=== PATIENT | female | born 1965 | race Caucasian/White ===

== ENCOUNTER 2023-02-05 10:07 | Emergency (ER) | payer MEDICARE, MEDICAID, SELFPAY ==
--- NOTE | ~2023-02-05 | CT_ITS ---
EXAMINATION: CT ABDOMEN AND PELVIS WITH CONTRAST CLINICAL INFORMATION: Pain. Weight loss. Dysuria. COMPARISON: None available. TECHNIQUE: Multidetector volumetric images were obtained from the superior aspect of the liver through the pubic symphysis following administration 85 mL of Omnipaque 350 intravenous contrast. Sagittal and coronal reformatted images were obtained on the technologist's workstation. Oral contrast: No This CT examination was performed using dose optimization techniques as appropriate, variously including the following: *Automated exposure control *Adjustment of mA and/or kV according to patient size (this includes techniques or standardized protocols for targeted exams where dose is matched to indication/reason for exam; i.e. extremities or head) *Use of iterative reconstruction technique DLP: 1152 mGy-cm FINDINGS: LUNG BASES: The visualized lung bases are unremarkable. LIVER, GALLBLADDER, AND BILIARY TREE: The liver is normal in size, shape, and attenuation. No focal hepatic lesion or biliary ductal dilatation is present. The gallbladder is unremarkable with no evidence of radiopaque gallstones, gallbladder wall thickening, or obvious pericholecystic inflammatory changes. PANCREAS: Unremarkable. SPLEEN: Unremarkable. ADRENAL GLANDS: Unremarkable. KIDNEYS AND URETERS: The kidneys are normal in size, shape, and attenuation. No hydronephrosis, hydroureter, or calculi seen. No perinephric stranding. Left-sided parapelvic cysts are noted. BLADDER: Unremarkable. GASTROINTESTINAL TRACT: There are scattered diverticula of the transverse, descending and sigmoid colon without diverticulitis. The appendix is visualized and is within normal limits. ABDOMINAL WALL: There is a small umbilical hernia containing fat. LYMPH NODES: Normal. VASCULAR: The endometrium is prominent measuring close to 2 cm. PELVIC VISCERA: Unremarkable. OSSEOUS STRUCTURES: There is diffuse thoracolumbar disc degenerative change most pronounced at L4-L5 with posterior osteophytes and disc bulging with multilevel spinal canal narrowing. CT/CT abdomen pelvis w IV con IMPRESSION: Diverticula of the transverse, descending and sigmoid colon without diverticulitis. Umbilical hernia containing fat. The endometrial appears to be thickened/prominent measuring close to 2 cm. Consider nonemergent pelvic ultrasound as hyperplasia considered. Fleischner guidelines were followed.
[2023-02-05 10:34] VITALS: BP 129/84; PULSE 78; RESP 16; TEMP 36.3; O2SAT 97; BMI 35.9
--- NOTE | 2023-02-05 12:32 | ED.ABDPAIN ---
HPI - Abdominal Pain General Chief Complaint: Abdominal Pain Stated Complaint: back pain/ abd pain/ blood in urine Time Seen by Provider: 02/05/23 12:24 Source: patient Mode of arrival: ambulatory Limitations: no limitations History of Present Illness HPI narrative: 57 yo female with PMH of HTN, normal colonoscopy about 1 year ago, life stress who notes since November she has lost 20+ lbs and has ignored lower back/abdominal pain and new hematuria. She was putting it off due to taking care of her mother. Has never had this before MD elicited complaint: abdominal pain Pertinent past history: none Onset (ago): month(s) (few) Pain Consistency: intermittent Location: suprapubic Severity: moderate Quality: cramping Radiation: back Migration to: no migration Exacerbating factors: nothing Relieving factors: nothing Associated symptoms: nausea, hematuria and other (unintentional weight loss) Related Data Allergies Allergy/AdvReac Type Severity Reaction Status Date / Time nitroglycerin [NITROGLYCERIN] Allergy Unknown SEIZURE Verified 02/05/23 10:33 LIKE SYMPTOMS, fainting/ seizure, seizures Review of Systems Review of Systems Constitutional : pos Weight loss, No Fever, No Chills ENT/Mouth : No sore throat, No Rhinorrhea Eyes: No Swelling, No Redness Cardiovascular : No Chest Pain, No SOB, NoEdema Respiratory : No Cough, No Sputum, No Wheezing Gastrointestinal : Positive Nausea, no Vomiting, no Diarrhea, positive abdominal Pain, No Hematochezia, No Melena Genitourinary : No Dysuria, No Urinary Frequency, pos Hematuria, No Urgency Musculoskeletal : No joint pain, No Myalgias, No Joint Swelling Skin : No Skin Lesions, No rash Neuro : No Weakness, No Numbness, No Dizziness, No Headache Psych : No Anxiety/Panic, No Depression Heme/Lymph: No Bruising, No Lymphadenopathy Endocrine : No Polyuria, No Polydipsia All other systems reviewed and are negative. [facility] Past Medical History Medical History HTN (hypertension) Social History (Updated 02/05/23 @ 12:45 by Sidra Temple DO) Patient Tobacco Use Status: Never used Tobacco Smoked in Last 30 Days: No Advance Directives: No Advance Directives Information Provided: Yes Physical Exam ED Vital Signs: Vital Signs - 24 hr 02/05/23 10:34 02/05/23 12:51 02/05/23 15:10 Temperature 97.4 F 97.4 F Pulse Rate 78 74 69 Respiratory Rate 16 18 18 Blood Pressure 129/84 149/79 H 143/63 H Pulse Oximetry 97 97 Oxygen Delivery Method Room Air Room Air BMI result Body Mass Index 35.9 Appearance: Alert. Oriented X3. No acute distress. Eyes: Pupils equal, round and reactive to light. ENT: Pharynx normal. Neck: Normal inspection. Neck supple. CVS: Normal heart rate and rhythm. Pulses normal. Respiratory: No respiratory distress. Breath sounds normal. Abdomen: Soft and mild lower abdominal ttp no rebound or guarding, seems distended Skin: Skin warm and dry. Normal skin color. Normal skin turgor. Extremities: No lower extremity edema. No calf ttp Neuro: Oriented X 3. No motor deficit. No sensory deficit. Medical Decision Making Medical Decision Making [facility] Narrative: 57 yo female with PMH of HTN and has lots of life stress here with unintentional weight loss since november abdominal pain radiating to back now with hematuria. She has not seen her doctor for this but due to worsening symptoms is now in the ED and scared. At this time will need labs, UA and CT scan for mass vs stone. Differential Diagnosis Differential Diagnoses: The differential diagnosis associated with the presentation includes mass, cancer, stone Admission/Observation Consideration of admission/observation: Escalation of care including admission/observation considered can be managed as outpatinet will refer to OBGYN Lab Data [facility] Lab Attestation statement: I reviewed the patient's lab results. 02/05/23 12:52 02/05/23 12:52 Labs: Lab Results 02/05/23 02/05/23 Range/Units 12:52 13:45 WBC 8.1 (4.8-10.8) X10*3/uL RBC 4.52 (4.20-5.50) X10*6/uL Hgb 13.3 (12.0-16.0) g/dl Hct 40.4 (37.0-47.0) % MCV 89.4 (80.0-98.0) fL MCH 29.4 (27.0-33.0) pg MCHC 32.9 (31.0-35.0) g/dl RDW 13.2 (11.0-16.0) % Plt Count 319 (160-400) X10*3/uL MPV 10.2 (9.4-12.3) fL Immature Gran % (Auto) 0.2 (0.0-0.4) % Neut % (Auto) 70.4 (45-73) % Lymph % (Auto) 21.7 (20-40) % [place] % (Auto) 6.8 (2-11) % Eos % (Auto) 0.4 (0-4) % Baso % (Auto) 0.5 (0-2) % Lymph # (Auto) 1.8 (1.2-4.9) X10*3/uL [place] # (Auto) 0.6 (0.1-1.2) X10*3/uL Eos # (Auto) 0.0 (0.0-0.4) X10*3/uL Baso # (Auto) 0.0 (0.0-0.2) X10*3/uL Abs Immat Gran (auto) 0.02 (0.00-0.03) X10*3/uL Absolute Neuts (auto) 5.7 (2.0-8.3) x10*3/uL Absolute Nucleated RBC 0.000 (0.0-0.012) X10*3/uL Nucleated RBC % (auto) 0.0 (0.0-0.2) /100WBC Sodium 142 (135-145) mmol/L Potassium 3.7 (3.3-5.1) mmol/L Chloride 112 H (96-108) mmol/L Carbon Dioxide 26 (22-29) mmol/L Anion Gap 8 L (12-20) BUN 13 (9-16) mg/dL Creatinine 0.90 (0.5-1.4) mg/dL Estim Creat Clear Calc 83.4 Estimated GFR > 60 Random Glucose 106 (60-115) mg/dL Calcium 8.8 (8.4-10.2) mg/dL Magnesium 2.3 (1.6-2.6) mg/dL Total Bilirubin 0.5 (0.0-1.0) mg/dL Direct Bilirubin 0.2 (0.0-0.5) mg/dL AST 14 (5-31) U/L ALT 14 (0-31) U/L Alkaline Phosphatase 76 (39-117) U/L Total Protein 7.0 (6.5-8.0) g/dL Albumin 4.0 (3.5-5.0) g/dL Lipase 12 (8-78) U/L Urine Color Yellow Urine Appearance Cloudy Urine pH 5.5 (5.0-9.0) Ur Specific [place] 1.010 (1.005-1.025) Urine Protein 30 (1+) H (Neg-Trace) mg/dL Urine Glucose (UA) Negative (Negative) mg/dL Urine Ketones Negative (Negative) mg/dL Urine Blood Large (3+) H (Negative) Urine Nitrite Negative (Negative) Ur Leukocyte Esterase Small (1+) H (Negative) Urine RBC >20 H (0-2) /HPF Urine WBC 11-20 H (0-5) /HPF Ur Squamous Epith Cells 0-2 (0-2) /HPF Urine Bacteria 4+ (None Seen) Hyaline Casts 0-2 (0-2) /LPF Independent Interpretation I performed an independent interpretation of an: CT Scan (no sig findings needs OB follow up for uterus) Radiology Impression Discussion of test interpretation with radiology: I have reviewed the radiologist's reading. Prescription Management I considered prescription management with: Antibiotic Medications Administered Discontinued Medications Generic Name Dose Route Start Last Admin Trade Name Freq PRN Reason Stop Dose Admin Iohexol 85 ml 02/05/23 14:15 02/05/23 14:16 Iohexol 350 Mg/Ml 100 Ml Infus..Btl IV 02/05/23 14:16 85 ml ONCE ONE Administration Discharge Plan Discharge Clinical Impression: Abdominal pain Qualifiers: Abdominal location: lower abdomen, unspecified Qualified Code(s): R10.30 - Lower abdominal pain, unspecified Hematuria Qualifiers: Hematuria type: gross Qualified Code(s): R31.0 - Gross hematuria Patient Disposition: Home, Self-Care Instructions: Abdominal Pain (ED), Hematuria (ED) Additional Instructions: take a probiotic while on antibiotic. you did have a thickened endometrium (lining of uterus) you will need to see your doctor and OBGYN for ultrasound and endometrial biopsy. do not wait on this. return for fevers, vomiting, worsening pain or bleeding IMPRESSION: Diverticula of the transverse, descending and sigmoid colon without diverticulitis. Umbilical hernia containing fat. The endometrial appears to be thickened/prominent measuring close to 2 cm. Consider nonemergent pelvic ultrasound as hyperplasia considered. Referrals: William Forde MD [Physician] - (call next week to schedule appointment)
[2023-02-05 12:51] VITALS: BP 149/79; PULSE 74; RESP 18
[2023-02-05 12:55] LABS: MANUAL DIFF FLAG NO
[2023-02-05 13:14] LABS: Basophils Percent Auto 0.5 % (0-2); Eosinophils Percent Auto 0.4 % (0-4); Hematocrit 40.4 % (37.0-47.0); Hemoglobin 13.3 g/dl (12.0-16.0); Imm Gran Abs Auto 0.02 X10*3/uL (0.00-0.03); Imm Gran Pct Auto 0.2 % (0.0-0.4); Lymphocytes Absolute Auto 1.8 X10*3/uL (1.2-4.9); Lymphocytes Percent Auto 21.7 % (20-40); Mean Corpuscular HGB Conc 32.9 g/dl (31.0-35.0); Mean Corpuscular Hemoglobin 29.4 pg (27.0-33.0); Mean Corpuscular Volume 89.4 fL (80.0-98.0); Mean Platelet Volume 10.2 fL (9.4-12.3); Monocytes Absolute Auto 0.6 X10*3/uL (0.1-1.2); Monocytes Percent Auto 6.8 % (2-11); Neutrophils Absolute Auto 5.7 x10*3/uL (2.0-8.3); Neutrophils Percent Auto 70.4 % (45-73); Platelet Count 319 X10*3/uL (160-400); Red Blood Count 4.52 X10*6/uL (4.20-5.50); Red Cell Distribution Width 13.2 % (11.0-16.0); White Blood Count 8.1 X10*3/uL (4.8-10.8)
[2023-02-05 13:36] LABS: Alanine Aminotransferase 14 U/L (0-31); Alkaline Phosphatase 76 U/L (39-117); Anion Gap 8 (12-20); Aspartate Amino Transferase 14 U/L (5-31); Bilirubin Direct 0.2 mg/dL (0.0-0.5); Bilirubin Total 0.5 mg/dL (0.0-1.0); Blood Urea Nitrogen 13 mg/dL (9-16); Calcium 8.8 mg/dL (8.4-10.2); Carbon Dioxide 26 mmol/L (22-29); Chloride 112 mmol/L (96-108); Creatinine Clr Calc Pharmacy 83.4; Estimated Glomerular Filt Rate > 60; Glucose Random 106 mg/dL (60-115); Lipase 12 U/L (8-78); Magnesium 2.3 mg/dL (1.6-2.6); Potassium 3.7 mmol/L (3.3-5.1); Sodium 142 mmol/L (135-145)
[2023-02-05 13:55] LABS: Glucose Urine UA Negative (Negative); Leukocyte Esterase Urine Small (1+) (Negative); Nitrite Urine Negative (Negative); PH 5.5 (5.0-9.0); UMIC TRIGGER UACC YES; Urine Blood Large (3+) (Negative); Urine Ketones Negative (Negative); Urine Protein 30 (1+) mg/dL (Neg-Trace)
[2023-02-05 13:56] LABS: Color Urine Yellow
[2023-02-05 13:57] LABS: Appearance Urine Cloudy
[2023-02-05 13:58] LABS: Bacteria Urine 4+ (None Seen); Hyaline Casts Urine 0-2 /LPF (0-2); RBC Urine >20 /HPF (0-2); Squamous Epithelial Cell Urine 0-2 /HPF (0-2); UACC Culture Trigger YES
[2023-02-05] MEDS: iohexoL 350 MG/ML 100 ML INFUS..BTL 85 ML IV (14:16)
[2023-02-05 15:10] VITALS: BP 143/63; PULSE 69; RESP 18; TEMP 36.3; O2SAT 97
[2023-02-05] MEDS: cefuroxime axetiL 250 MG TABLET PO (16:05)
[2023-02-05 16:07] VITALS: BP 140/77; PULSE 70; RESP 16; O2SAT 97
== END 2023-02-05 16:18 | disposition home or self-care (01) ==
PROVIDERS: Emergency Provider Emergency Medicine
DX: R31.0 Gross hematuria (principal); R10.30 Lower abdominal pain, unspecified; Z79.899 Other long term (current) drug therapy
CPT/HCPCS: 36415; 74177; 80048; 80076; 81001; 83690; 83735; 85025; 87086; 87088; 87186; 99284; Q9967

== ENCOUNTER 2023-02-10 13:02 | Outpatient (AMB) | payer MEDICARE, MEDICAID, SELFPAY ==
--- NOTE | 2023-02-10 13:41 | MHC.OFFVIS ---
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 for 7 days, the patient's symptoms have improved markedly since then. On CT scan , showed a thickened endometrium and a fat containing umbilical hernia . Last co testing ? Last mammogram was many years ago [facility] Medical History (Updated 02/10/23 @ 14:27 by William Forde MD) HTN (hypertension) Surgical History (Updated 02/10/23 @ 13:50 by JOHNNY Strickland) Hx of breast lump removal Hx of knee surgery Social History (Updated 02/10/23 @ 13:50 by JOHNNY Strickland) Patient Tobacco Use Status: Never used Tobacco e-Cigarette/Vaping Use: Currently Using Female Reproductive History Menstrual Age of Menarche: 11 control method: none Total pregnancies: 0 Review of Systems Const All systems reviewed & are unremarkable except as noted in HPI and below Physical Exam Vital Signs: Last Vital Signs BP 132/80 02/10/23 13:47 BMI result Body Mass Index 35.4 General: Yes no CVA tenderness External Female Exam: normal external appearance and normal appearance of the urethra Speculum Exam - Vagina: normal appearance of the vagina, normal palpation, no lesions, no masses and other (Blood per vagina) Speculum Exam - Cervix: normal appearance of the cervix, normal palpation, no lesions, no masses and nontender Bimanual exam- vagina & uterus: normal bimanual exam, normal palpation, uterine size normal, normal palpation, uterine shape normal, No Cervical tenderness present and non-tender Bimanual Exam- Adnexa, other: normal adnexae Back/Spine/Pelvis Back: no CVA tenderness Office Procedures Endometrial Biopsy Details: The patient was counseled regarding the indication and benefits of endometrial sampling to rule out endometrial pathology including not limited to endometrial hyperplasia or endometrial cancer and others; The alternatives (Either do nothing vs. hysteroscopy D&C) & the risks were discussed with the patient including but not limited: pain, uterine perforation, bleeding, infection, possible injury to bladder, bowel, ureter, possible need for blood transfusion with all its possible risks. The patient verbalized understanding all questions answered and signed consent. The patient was placed into the dorsal lithotomy position; a speculum was inserted in the vagina. Using aseptic technique for the procedure, the cervix was cleansed with Betadine. The anterior lip of the cervix was grasped with a single tooth tenaculum. The uterus was sounded to 7 cm with a 4 mm Pipelle was used. Tissues samples were obtained and placed in formalin, in a patient labeled container and sent to the pathology department. At the end of the procedure, there was minimal bleeding noted The patient tolerated the procedure well and was discharged in good condition with the following instructions: Nothing in the vagina until the bleeding stops. No sex until the bleeding stops, to call if any of the following occurs: fever (>100.4), flu-like symptoms, abdominal pain, heavy bleeding, four smelling vaginal discharge. The patient was instructed to schedule a Follow up appointment in 2 weeks to discuss pathology results of the biopsy and treatment options. This note was generated with a voice recognition program. Some errors may have been overlooked during the review of this note. Sometimes these errors may affect the content or meaning of a given sentence. [id number] Biopsy Assessment & Plan Assessment & Plan (1) Postmenopausal bleeding: Comment: Thick endometrium by CT Code(s): N95.0 - Postmenopausal bleeding Plan: Co testing done. Mammogram ordered. Discussed with the patient the pelvic ultrasound findings, the endometrial stripe thickenss by CT was more than 4mm. The negative predictive value, positive predictive value, Sensitivity, specificity of using ultrasound measurement of endometrial stripe to detecting endometrial pathology including hyperplasia , polyp or cancer were discussed with the patient. Recommended to the patient that the next step is an endometrial sampling via hysteroscopy D&C possible polypectomy versus endometrial biopsy to r/o endometrial pathology including hyperplasia or cancer. All the pros and cons risks and benefits of each approach were discussed with the patient, endometrial biopsy being less invasive, office procedure with less sensitivity and inability diagnose a polyp and removal versus hysteroscopy done under anesthesia more invasive more sensitive to endometrial cancer and possibility of diagnosing and endometrial polyp with the possibility of polypectomy. All questions were answered pt verbalized understanding and decided to proceed with endometrial biopsy. EMB done, see procedure note. Instructions given the patient to schedule a 2 week EMB follow-up appointment. (2) Umbilical hernia: Code(s): K42.9 - Umbilical hernia without obstruction or gangrene Plan: Discussed with the patient the finding on CT scan showing fat containing umbilical hernia , will refer to marketing regional consultant surgery Orders: Orders Pap Smear Today N95.0 - Postmenopausal bleeding MM screening mammo BI Today Z12.31 - Encounter for screening mammogram for malignant neoplasm of breast Surgical Today N95.0 - Postmenopausal bleeding AMB Endometrial Biopsy Today N95.0 - Postmenopausal bleeding Referrals General Surgery Referral K42.9 - Umbilical hernia without obstruction or gangrene Coding Level of Care Code New Pt Level 3 (00843) Procedure Only Diagnoses Postmenopausal bleeding N95.0 Umbilical hernia K42.9 CPT Codes Endometrial Biopsy - CPT: 09199-Bzilacymphg Biopsy ([id number])
[2023-02-10 13:47] VITALS: BP 132/80; BMI 35.4
== END 2023-02-10 14:28 | disposition home or self-care (01) ==
PROVIDERS: Visit Provider Obstetrics & Gynecology
DX: N95.0 Postmenopausal bleeding (principal); K42.9 Umbilical hernia without obstruction or gangrene
CPT/HCPCS: 58100

== ENCOUNTER 2023-02-10 13:02 | Outpatient (REF) | payer MEDICARE, MEDICAID, SELFPAY ==
[2023-02-15 22:58] LABS: HPV mRNA E6/E7 rflx Not Detected (Not Detected)
== END 2023-02-10 13:03 | disposition home or self-care (01) ==
LOC: HO.LNP 13:02
PROVIDERS: Visit Provider Obstetrics & Gynecology
DX: Z12.4 Encounter for screening for malignant neoplasm of cervix (principal); Z11.51 Encounter for screening for human papillomavirus (HPV); N95.0 Postmenopausal bleeding; K42.9 Umbilical hernia without obstruction or gangrene
CPT/HCPCS: 58100; 87624; 88142; 88305

== ENCOUNTER 2023-02-22 08:28 | Outpatient (AMB) | payer MEDICARE, MEDICAID, SELFPAY ==
--- NOTE | 2023-02-22 08:47 | A.OFFVIS_ITS ---
Intake Vital Signs 02/22/23 08:54 Height 5 ft 7 in Weight 254 lb BMI 39.8 BP 131/63 Blood Pressure Location Rt brachial Position Sitting Pulse 84 Intake Visit Reasons: umbilical hernia Intake Note: This patient presents for an assessment for an umbilical hernia. Patient c/o; reports bulge, reports no pain, reports no changes in bowel habits. 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 She went to the ER for vaginal bleeding last 02/05/2023. She therefore had a CAT scan done at that time. She was diagnosed to have possible endometritis and was sent to a used car renovator Review of her CT scan showed a fat containing umbilical hernia as well so she was referred to me She says that she has had no vaginal bleeding anymore for the past 2 weeks almost. She says that she had was not aware that she had an umbilical hernia. [facility] Medical History Morbid obesity HTN (hypertension) Surgical History Hx of breast lump removal Hx of knee surgery Family History Father Pancreas cancer Social History Patient Tobacco Use Status: Never used Tobacco e-Cigarette/Vaping Use: Currently Using Female Reproductive History Menstrual Age of Menarche: 11 Review of Systems Const Denies chills and Denies fever(s) Card Denies chest pain, Denies dyspnea and Denies dyspnea on exertion Resp Denies cough, Denies dyspnea and Denies dyspnea on exertion GI Denies hematochezia and Denies change in bowel habits Denies hematuria Musc Denies back pain and Denies limited range of motion Neuro Denies focal weakness and Denies convulsions Psych Denies depression and Denies mood swings Physical Exam Vital Signs: Last Vital Signs Pulse 84 02/22/23 08:54 BP 131/63 02/22/23 08:54 BMI result Body Mass Index 39.8 Const General: comfortable and no acute distress Orientation/consciousness: patient oriented x3 Neck Neck: Yes no lymphadenopathy Resp Auscultation: clear to auscultation bilaterally Cardio Rhythm: regular rhythm GI Other: Small hernia on the umbilicus, felt with Valsalva; patient morbidly obese Palpation (GI): Soft to palpation, nontender and no guarding Neuro General: patient oriented x3 Assessment & Plan Assessment & Plan (1) Umbilical hernia: Code(s): K42.9 - Umbilical hernia without obstruction or gangrene Plan: She has a small umbilical hernia felt with Valsalva as well as seen on her CT scan. This defect measures about 1.5 cm and is fat containing. I did explain to her the option of umbilical hernia repair with possible mesh. I reviewed the risks including but not limited to bleeding, infections, bowel injury, recurrence, postop pain, as well as the benefits and alternatives I explained to her what to expect postoperatively She has given consent. Coding Level of Care Code New Pt Level 3 (97332) Diagnoses Umbilical hernia K42.9
[2023-02-22 08:54] VITALS: BP 131/63; PULSE 84; BMI 39.8
== END 2023-02-22 09:13 | disposition home or self-care (01) ==
PROVIDERS: Visit Provider Surgery
DX: K42.9 Umbilical hernia without obstruction or gangrene (principal)
CPT/HCPCS: 99203

== ENCOUNTER → 2023-02-22 08:28 | Outpatient (BNVA) | payer MEDICARE, MEDICAID, SELFPAY | PROVIDERS: Visit Provider Surgery | DX: K42.9 Umbilical hernia without obstruction or gangrene (principal) | CPT/HCPCS: 99202 ==

== ENCOUNTER 2023-03-02 07:46 | Outpatient (AMB) | payer MEDICARE, MEDICAID, SELFPAY ==
--- NOTE | 2023-03-02 07:54 | A.OFFVIS_ITS ---
Intake Intake Visit Reasons: Results Allergies nitroglycerin [NITROGLYCERIN] Allergy (Unknown, Verified 02/22/23 08:52) SEIZURE LIKE SYMPTOMS, fainting/ seizure, seizures HPI HPI Comments History of Present Illness Details The patient scheduled tele health visit to discuss the results of the endometrial biopsy/co testing. Pap smear was unsatisfactory due to scant cellularity HPV negative. Endometrial biopsy pathology showed the following: Inactive endometrium with stromal and glandular breakdown; negative for atypia, hyperplasia or malignancy The patient is complaining of persistent vaginal spotting and pelvic cramping PFSH Medical History Morbid obesity HTN (hypertension) Surgical History Hx of breast lump removal Hx of knee surgery Family History Father Pancreas cancer Social History Patient Tobacco Use Status: Never used Tobacco e-Cigarette/Vaping Use: Currently Using Female Reproductive History Menstrual Age of Menarche: 11 Review of Systems Const All systems reviewed & are unremarkable except as noted in HPI and below Reports as per HPI and Reports no additional complaints GI Reports no additional complaints Reports no additional complaints Assessment & Plan Assessment & Plan (1) Postmenopausal bleeding: Comment: Thick endometrium by CT Code(s): N95.0 - Postmenopausal bleeding Plan: Discussed with the patient (and her [id number], Franky with her authorization ) the results of the endometrial biopsy showing inactive endometrium. Discussed with the patient the sensitivity, specificity, positive and negative predictive value, of endometrial biopsy in detecting endometrial pathology including but no t limited to endometrial hyperplasia, cancer and other pathology; instructed the patient to call in case is persistent vaginal bleeding bleeding for the coming few weeks, the next step will be to proceed with a diagnostic hysteroscopy/D&C for further endometrial sampling evaluation to rule out endometrial pathology. The patient scheduled for a follow-up appointment on 04/05/19 and is aware of it, if bleeding persists will proceed with hysteroscopy D&C possible polypectomy . All questions answered and the patient verbalized understanding and agreed with the plan. (2) Unsatisfactory cervical Papanicolaou smear: Code(s): R87.615 - Unsatisfactory cytologic smear of cervix Plan: Discussed with the patient and her [id number] Franky, with her authorization, the results of the Pap smear, unsatisfactory/HPV negative, recommended repeat Pap smear on her next appointment in 04/05/2023. All questions answered, the patient verbalized understanding. I spent a total of 20 minutes reviewing the chart, talking to the patient via phone and documenting in the medical record. Telehealth Telehealth Location of provider rendering services: practice address Location of patient: address on file Patient Identification confirmed using: Name, : Yes Telehealth method: voice only Patient verbally consented to treatment: Yes Patient verbally consented to billing insurance company: Yes Patient informed of any privacy concerns related to visit: Yes Coding Level of Care Code Tele Est Pt Level 1 (55950) Diagnoses Postmenopausal bleeding N95.0 Unsatisfactory cervical Papanicolaou smear R87.615
== END 2023-03-02 09:58 | disposition home or self-care (01) ==
LOC: HO.HWS 07:46
PROVIDERS: Visit Provider Obstetrics & Gynecology
DX: N95.0 Postmenopausal bleeding (principal); R87.615 Unsatisfactory cytologic smear of cervix
CPT/HCPCS: 99211

== ENCOUNTER → 2023-03-02 07:46 | Outpatient (BNVA) | payer MEDICARE, MEDICAID, SELFPAY | PROVIDERS: Visit Provider Obstetrics & Gynecology ==

== ENCOUNTER 2023-03-23 05:49 | Day surgery (SDC) | payer MEDICARE, MEDICAID, SELFPAY ==
[2023-03-18 19:44] VITALS: BMI 34.3
[2023-03-23] VITALS (12 sets, daily range): BP systolic 116–143; BP diastolic 55–77; PULSE 54–82; RESP 16–18; TEMP 36.4–37.1; O2SAT 95–100; BMI 34.4
[2023-03-23] MEDS: Lactated Ringers 1,000 ML 100 ML IVCONT (06:21)
--- NOTE | 2023-03-23 07:25 | HO.ANESPROP2 ---
Documented by User: Liz Qiu NP 03/22/23 09:25 HPI - Anesthesia Eval Consult details Narrative: 57yo F for Hernia Repair Umbilical,poss mesh PMFSH Active Problems Active Problems: All Active Problems (Updated 03/18/23 @ 19:39 by Rebecca Aguero, RN) Unsatisfactory cervical Papanicolaou smear (Acute) Umbilical hernia (Acute) Postmenopausal bleeding (Acute) Morbid obesity (Acute) Past Medical History Medical History (Updated 03/18/23 @ 19:39 by Rebecca Aguero, RN) Weight loss Back pain History of endometrial biopsy Depression Sleep apnea Morbid obesity HTN (hypertension) Family History Family History Father Pancreas cancer Surgical History Surgical History Hx of breast lump removal Hx of knee surgery Social History Social History 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: Yes (MOTHER) Patient Tobacco Use Status: Never used Tobacco e-Cigarette/Vaping Use: Currently Using Use of substances other than those prescribed or required for medical reasons: No Are you DNR?: No Advance Directives: No Advance Directives Information Provided: Yes Advance Directives on File: No Recently lost weight without trying: Yes How much weight loss: 24-33 pounds Meds Allergies Allergy/AdvReac Type Severity Reaction Status Date / Time nitroglycerin [NITROGLYCERIN] Allergy Unknown SEIZURE Verified 02/22/23 08:52 LIKE SYMPTOMS, fainting/ seizure, seizures Home Medications Medication Instructions Recorded Confirmed Last Taken Type No Known Home Meds 02/22/23 03/18/23 Unknown History Exam Height,Weight and Vital Signs: Height 5 ft 7 in Weight 99.337 kg Pertinent Lab Results Pertinent Lab Results: Laboratory Tests 02/05/23 12:52 WBC 8.1 Hgb 13.3 Hct 40.4 Plt Count 319 Sodium 142 Potassium 3.7 Chloride 112 H Carbon Dioxide 26 BUN 13 Creatinine 0.90 Assessment and Plan Assessment Anesthesia Assessment: Chart Reviewed Documented by User: Funmi Davis DO 03/23/23 07:25 [facility] Past Medical History Medical History (Updated 03/18/23 @ 19:39 by Rebecca Aguero, RN) Weight loss Back pain History of endometrial biopsy Depression Sleep apnea Morbid obesity HTN (hypertension) Family History Family History Father Pancreas cancer Family history of problems with anesthesia: No Surgical History Surgical History Hx of breast lump removal Hx of knee surgery History of Problems with Anesthesia: No Social History Social History 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: Yes (MOTHER) Patient Tobacco Use Status: Never used Tobacco e-Cigarette/Vaping Use: Currently Using Use of substances other than those prescribed or required for medical reasons: No Are you DNR?: No Advance Directives: No Advance Directives Information Provided: Yes Advance Directives on File: No Recently lost weight without trying: Yes How much weight loss: 24-33 pounds Meds Allergies Allergy/AdvReac Type Severity Reaction Status Date / Time nitroglycerin [NITROGLYCERIN] Allergy Unknown SEIZURE Verified 02/22/23 08:52 LIKE SYMPTOMS, fainting/ seizure, seizures Home Medications Medication Instructions Recorded Confirmed Last Taken Type No Known Home Meds 02/22/23 03/18/23 Unknown History Exam Exam Date and Time: March 23, 2023 0720 Height,Weight and Vital Signs: Height 5 ft 7 in Weight 99.337 kg Height 5 ft 7 in Weight 99.609 kg Vital Signs Temperature 97.9 F 03/23/23 06:30 Pulse Rate 62 03/23/23 06:30 Respiratory Rate 18 03/23/23 06:30 Blood Pressure 143/77 H 03/23/23 06:30 Pulse Oximetry 96 03/23/23 06:30 Oxygen Delivery Method Room Air 03/23/23 06:30 Temperature 97.9 F 03/23/23 06:30 Pulse Rate 62 03/23/23 06:30 Respiratory Rate 18 03/23/23 06:30 Blood Pressure 143/77 H 03/23/23 06:30 Pulse Oximetry 96 03/23/23 06:30 Oxygen Delivery Method Room Air 03/23/23 06:30 Airway Mallampati Class: II TM Dist: <=3cm Neck ROM: Full Loose/Missing/Broken Teeth: Yes (multiple missing teeth) Heart: S1S2 Lungs: CTAB Assessment and Plan Final Anesthetic Review Family History of Problems with Anesthesia: No History of Problems with Anesthesia: No NPO: Yes ASA Class: II Final Preanesthetic Review: No Changes in Pt Med Stat, Meds/Allgs Chart Reviewed, Consent Obtained/Reviewed and Anes Risks/Benef Reviewed Patient Risk: Low Procedure Risk: Low Anesthetic Plan Anesthetic Plan: GA and Agree w/ Assess. and Plan Disposition: Standard PACU
--- NOTE | 2023-03-23 07:32 | MHC.SHP ---
Pre-Procedural Eval Section A Date of Service: 03/23/23 The patient is an INPATIENT: No Changes since office visit: No Cold of Flu in the past 2 weeks, No New Medical Problems, No Changes in Medication and No Patient answered all questions The History & Physical has been completed within 30 days and I have reviewed it.: Yes Section B Chief Complaint: Umbilical hernia without obstruction or gangrene Allergies: Allergies Allergy/AdvReac Type Severity Reaction Status Date / Time nitroglycerin [NITROGLYCERIN] Allergy Unknown SEIZURE Verified 02/22/23 08:52 LIKE SYMPTOMS, fainting/ seizure, seizures Plan I have reviewed the history and physical and performed a pertinent physical examination on my patient. No changes have occurred unless specified. Time Spent With Patient Time: Total time managing care of this patient today ____ minutes.
--- NOTE | 2023-03-23 08:07 | P.OP_ITS ---
Operative Note Operative Note Date of Service: 03/23/23 Narrative: Preop diagnosis: Umbilical hernia Postop diagnosis: Umbilical hernia Procedure: Repair of umbilical hernia with Ventralex mesh Surgeon: Destin Lua MD clinical services assistant: MOMO Singer The patient is a 57-year-old female with a small umbilical hernia seen on a previous CT scan for an unrelated complaint. She did state that she had felt this lump on her umbilicus with some discomfort for several years now. She understood the technique of the procedure as well as the risks, benefits, and alternatives . She was brought to the operating room and placed supine under general anesthesia via laryngeal mask airway. The abdomen was prepped and draped in the usual sterile fashion. A surgical time-out was done. The patient received cefazolin 2 g IV preoperatively I infiltrated the planned line of incision with lidocaine 1%. I made an infraumbilical curvilinear transverse incision using blade 15. This was carried down with electrocautery through the full-thickness of the skin and subcutaneous fat until was able to see the umbilical hernia contents. I sharply dissected the hernia sac off of the umbilicus to completely separate this. By doing so was able to then clearly define the hernia which contained fat. This down to the fascial edge. I released all adhesions with sharp dissection using electrocautery as well as Metzenbaum scissors until was able to reduce the entire hernia completely. The fascial defect was about 0.5 cm. I used a small-sized Ventralex mesh. This was positioned under the fascial defect and flattened. I secured the Prolene straps to the fascial edge on both sides with Prolene 2 sutures. I trimmed the Prolene straps flush on the fascial level. I closed the fascia with a [id number] Maxon 1 stitch The subcutaneous layer was closed with Polysorb 3-0 interrupted sutures. Skin closure was achieved with Polysorb 4-0 subcuticular running sutures. The area was infiltrated with Marcaine 0.5% for postop ANTONIA. Steri-Strips and dressings were applied. The procedure was completed. The patient tolerated procedure well. There were no immediate complications. Initial and final counts of sponges and instruments were correct. Estimated b lood loss was less than 5 cc. The patient was extubated without difficulty and transferred to the recovery room with stable vital signs.
[2023-03-23] MEDS: oxyCODONE HCl Immed Release 5 MG TABLET PO (08:34)
[2023-03-23] MEDS: fentaNYL citrate/PF 100 MCG/2 ML VIAL 50 MCG IVPUSH ×2 (08:34→08:47)
== END 2023-03-23 10:15 | disposition home or self-care (01) ==
PROVIDERS: Visit Provider Surgery
PROC: (CPT 49591; principal; 2023-03-23 07:30)
DX: K42.9 Umbilical hernia without obstruction or gangrene (principal); K66.0 Peritoneal adhesions (postprocedural) (postinfection); I10 Essential (primary) hypertension; E66.01 Morbid (severe) obesity due to excess calories; Z68.39 Body mass index [BMI] 39.0-39.9, adult; Z88.8 Allergy status to other drugs, medicaments and biological substances
CPT/HCPCS: 49591; C1781; J0131; J0665; J0690; J1100; J1885; J2405; J2704; J3010

== ENCOUNTER → 2023-03-23 05:49 | Outpatient (BNV) | payer MEDICARE, MEDICAID, SELFPAY | PROVIDERS: Visit Provider Surgery | DX: K42.9 Umbilical hernia without obstruction or gangrene (principal) | CPT/HCPCS: 49591 ==

== ENCOUNTER 2023-04-05 13:07 | Outpatient (AMB) | payer MEDICARE, MEDICAID, SELFPAY ==
--- NOTE | 2023-04-05 13:53 | A.OFFVIS_ITS ---
Intake Vital Signs 04/05/23 13:58 Weight 215 lb BP 127/66 Blood Pressure Location Rt brachial Position Sitting Pulse 117 H Intake Visit Reasons: S/P umbilical hernia w/poss. mesh Intake Note: This patient presents for a post-op assessment status post umbilical hernia repair with Ventralex mesh. Patient c/o: reports no complaints at this time pertaining to surgery. 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 mesh HPI Details She underwent repair of an umbilical hernia with mesh last Mar 23, 2022. She tolerated the procedure well and currently denies complaints. 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) Patient Tobacco Use Status: Never used Tobacco e-Cigarette/Vaping Use: Currently Using Female Reproductive History Menstrual Age of Menarche: 11 Review of Systems Const Denies chills and Denies fever(s) Card Denies chest pain, Denies dyspnea and Denies dyspnea on exertion Resp Denies cough, Denies dyspnea and Denies dyspnea on exertion GI Denies hematochezia and Denies change in bowel habits Denies hematuria Musc Denies back pain and Denies limited range of motion Neuro Denies focal weakness and Denies convulsions Psych Denies depression and Denies mood swings Physical Exam Vital Signs: Last Vital Signs Pulse 117 H 04/05/23 13:58 BP 127/66 04/05/23 13:58 Const General: comfortable and no acute distress GI Other: incision clean, wellhealed, not infected, repair intact Assessment & Plan Assessment & Plan (1) Umbilical hernia: Code(s): K42.9 - Umbilical hernia without obstruction or gangrene Plan: s/p repair with mesh.Repair is intact, Incision is wellhealed. I advised her to avoid lifting of more than 20 lbs for 2 more weeks. She can ffup on a prn basis. Coding Level of Care Code Global (99883) Diagnoses Umbilical hernia K42.9
[2023-04-05 13:58] VITALS: BP 127/66; PULSE 117
== END 2023-04-05 14:04 | disposition home or self-care (01) ==
PROVIDERS: Visit Provider Surgery
DX: K42.9 Umbilical hernia without obstruction or gangrene (principal)
CPT/HCPCS: 99212

== ENCOUNTER → 2023-04-05 13:07 | Outpatient (BNVA) | payer MEDICARE, MEDICAID, SELFPAY | PROVIDERS: Visit Provider Surgery | DX: K42.9 Umbilical hernia without obstruction or gangrene (principal) | CPT/HCPCS: 99212 ==

== ENCOUNTER 2023-04-18 07:22 | Emergency (ER) | payer MEDICARE, MEDICAID, SELFPAY ==
[2023-04-18 07:40] VITALS: BP 125/80; PULSE 80; RESP 16; TEMP 36.4; O2SAT 99; BMI 32.3
--- NOTE | 2023-04-18 07:56 | ED_ITS ---
HPI - Female Genitourinary General Chief complaint: Vaginal Bleeding Stated complaint: Vaginal bleeding - surgery last week Time Seen by Provider: 04/18/23 07:39 Source: patient Mode of arrival: ambulatory History of Present Illness HPI Narrative: 57-year-old female who has a history of vaginal bleeding, has been evaluated by gynecology and on review of the note states that uterine endometrium is inactive. Patient states that she woke up this morning with her underwear soaked in her sheets soaked in blood. Related Data Previous Rx's Medication Instructions Recorded ibuprofen 600 mg tablet 600 mg PO Q6H PRN pain #30 tabs 03/23/23 oxycodone-acetaminophen 5 mg-325 1 tab PO Q4-6H PRN pain #20 tabs 03/23/23 mg tablet (Percocet) cephalexin 500 mg capsule 500 mg PO BID 5 days #10 caps 04/18/23 Allergies Allergy/AdvReac Type Severity Reaction Status Date / Time nitroglycerin [NITROGLYCERIN] Allergy Unknown SEIZURE Verified 04/18/23 07:40 LIKE SYMPTOMS, fainting/ seizure, seizures Review of Systems 2 Review of Systems: Pertinent positives and negatives as stated in HPI [facility] Past Medical History Source: nursing notes reviewed Medical History Weight loss Back pain History of endometrial biopsy Depression Sleep apnea Morbid obesity HTN (hypertension) Surgical History History of umbilical hernia repair (~03/23/23) Hx of breast lump removal Hx of knee surgery Family History Family History Father Pancreas cancer Social History Social History Are you a primary rn progressive care to a significant other at home: Yes (MOTHER) Patient Tobacco Use Status: Never used Tobacco e-Cigarette/Vaping Use: Currently Using Advance Directives: No Advance Directives Information Provided: Yes Physical Exam 2 Vital Signs: Vital Signs: Last Vital Signs Temp 97.5 F 04/18/23 07:40 Pulse 80 04/18/23 07:40 Resp 16 04/18/23 07:40 BP 125/80 04/18/23 07:40 Pulse Ox 99 04/18/23 07:40 O2 Del Method Room Air 04/18/23 07:40 BMI result Body Mass Index 32.3 VITAL SIGNS: Reviewed. GENERAL: Well developed, well nourished, in no acute distress. HEAD: Normocephalic/atraumatic EYES: PERRLA, EOMI EARS: Ext canals without abnormality LUNGS: Normal breath sounds. No adventitious sounds or accessory muscle use. SpO2<99> CARDIOVASCULAR: Regular rate and rhythm without noted murmurs ABDOMEN: Soft, non-tender, non-distended with bowel sounds. MUSCULOSKELETAL: No tenderness, deformities, or effusions noted on gross inspection. EXTREMITIES: No cyanosis, clubbing or edema. PELVIC: Mild dark bleeding from cervical os, noted tissue at the cervical os and unable to remove. SKIN: Inspection of the skin reveals no rashes NEUROLOGIC: Alert and oriented x 4. Strength and sensation to light touch were grossly intact x 4. Medications Administered Discontinued Medications Generic Name Dose Route Start Last Admin Trade Name Freq PRN Reason Stop Dose Admin Ceftriaxone Sodium 1 gm/ 50 mls @ 100 mls/hr 04/18/23 08:31 04/18/23 09:04 Sodium Chloride IV 04/18/23 09:00 100 mls/hr ONCE ONE Administration Medical Decision Making Medical Decision Making MDM Narrative: 57-year-old female with history and clinical presentation of postmenopausal bleeding, will evaluate with speculum exam and then discussed with Dr. Forde, will obtain lab work. I reviewed Dr. Forde's note from 03/02/2023 where he writes that patient was supposed to return on 04/05/23 but I do not see any note from that visit. Patient does provide information stating that she had an appointment in March and states that her next appointment is 04/29/2023. 0902: Contacted Dr. Forde and he recommends that patient may be discharged since bleeding is mild with strict bleeding return precautions and instruct the patient to call the office in the morning and he will see her in the next 24-48 hours. I reviewed all investigations and hematologic indices are negative for leukocytosis/left shift/anemia/thrombocytopenia. Chemistry into seizure grossly within normal limits without any noted derangements. Urinalysis is positive for nitrites and leukocyte esterase, patient received initial dose of antibiotics here in the emergency room and then was discharged on remaining course. I discussed the results and plan with the patient at bedside. Patient acknowledges bleeding return precautions and is otherwise discharged home. 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 Please see the discussion above 04/18/23 08:27 04/18/23 08:27 Labs: Lab Results 04/18/23 04/18/23 04/18/23 Range/Units 08:09 08:27 08:52 WBC 5.7 (4.8-10.8) X10*3/uL RBC 4.62 (4.20-5.50) X10*6/uL Hgb 13.2 (12.0-16.0) g/dl Hct 40.6 (37.0-47.0) % MCV 87.9 (80.0-98.0) fL MCH 28.6 (27.0-33.0) pg MCHC 32.5 (31.0-35.0) g/dl RDW 13.4 (11.0-16.0) % Plt Count 338 (160-400) X10*3/uL MPV 9.9 (9.4-12.3) fL Immature Gran % (Auto) 0.2 (0.0-0.4) % Neut % (Auto) 61.8 (45-73) % Lymph % (Auto) 29.4 (20-40) % [place] % (Auto) 7.0 (2-11) % Eos % (Auto) 1.1 (0-4) % Baso % (Auto) 0.5 (0-2) % Lymph # (Auto) 1.7 (1.2-4.9) X10*3/uL [place] # (Auto) 0.4 (0.1-1.2) X10*3/uL Eos # (Auto) 0.1 (0.0-0.4) X10*3/uL Baso # (Auto) 0.0 (0.0-0.2) X10*3/uL Abs Immat Gran (auto) 0.01 (0.00-0.03) X10*3/uL Absolute Neuts (auto) 3.5 (2.0-8.3) x10*3/uL Absolute Nucleated RBC 0.000 (0.0-0.012) X10*3/uL Nucleated RBC % (auto) 0.0 (0.0-0.2) /100WBC Sodium 139 (135-145) mmol/L Potassium 4.1 (3.3-5.1) mmol/L Chloride 108 (96-108) mmol/L Carbon Dioxide 23 (22-29) mmol/L Anion Gap 12 (12-20) BUN 12 (9-16) mg/dL Creatinine 0.99 (0.5-1.4) mg/dL Estim Creat Clear Calc 76.7 Estimated GFR 57 Random Glucose 106 (60-115) mg/dL Lactic Acid 1.1 (0.5-2.0) mmol/L Calcium 8.4 (8.4-10.2) mg/dL Total Bilirubin 0.6 (0.0-1.0) mg/dL AST 12 (5-31) U/L ALT 13 (0-31) U/L Alkaline Phosphatase 95 (39-117) U/L Total Protein 6.7 (6.5-8.0) g/dL Albumin 3.7 (3.5-5.0) g/dL Urine Color Yellow Urine Appearance Clear Urine pH 5.5 (5.0-9.0) Ur Specific [place] 1.020 (1.005-1.025) Urine Protein Trace (Neg-Trace) mg/dL Urine Glucose (UA) Negative (Negative) mg/dL Urine Ketones Negative (Negative) mg/dL Urine Blood Large (3+) H (Negative) Urine Nitrite Positive H (Negative) Ur Leukocyte Esterase Trace H (Negative) Urine RBC 11-20 H (0-2) /HPF Urine WBC 11-20 H (0-5) /HPF Ur Squamous Epith Cells 3-5 (0-2) /HPF Urine Bacteria 4+ (None Seen) Hyaline Casts 0-2 (0-2) /LPF External Record Review External record reviewed: Outpatient record, Prior outpatient labs and Prior outpatient radiology Critical Care Time Critical Care Time Critical Care Time: Yes Total Critical Care Time: 60 Attestation: I personally attest to this time spent taking care of the patient. Discharge Plan Discharge Clinical Impression: Postmenopausal bleeding, UTI (urinary tract infection) Patient Disposition: Home, Self-Care Instructions: Dysfunctional Uterine Bleeding (ED), Urinary Tract Infection in Older Adults (ED) Additional Instructions: 1. Resume all home medications as prescribed. Recommend [id number] Tylenol/ibuprofen as needed pain control. 2. Complete the entire course of antibiotics as prescribed. 3. Please call the office of Dr. Forde 1st thing in the morning and they will get you in for follow-up appointment. Return to the ER for any worsening symptoms, specifically saturating 1 pad an hour or any other concerning symptoms to you. Prescriptions: New cephalexin 500 mg capsule 500 mg PO BID 5 Days Qty: 10 0RF No Action oxycodone-acetaminophen [Percocet] 5-325 mg tablet 1 tab PO Q4-6H PRN (Reason: pain) Qty: 20 0RF Rx Instructions: Partial Fill upon patient request. ibuprofen 600 mg tablet 600 mg PO Q6H PRN (Reason: pain) Qty: 30 0RF Referrals: Dalia Lam MD [Primary Care Provider] - William Forde MD [Physician] -
--- NOTE | 2023-04-18 08:12 | PC.NURSE ---
pt switched to obgyn stretcher at this time. pelvic exam supplies set up bedside for provider convenience at this time. urine obtained/sent to lab. pt resting comfortably in no apparent distress. call hammond placed within reach.
[2023-04-18 08:16] LABS: Appearance Urine Clear; Color Urine Yellow; Glucose Urine UA Negative (Negative); Leukocyte Esterase Urine Trace (Negative); Nitrite Urine Positive (Negative); PH 5.5 (5.0-9.0); UMIC TRIGGER UACC YES; Urine Blood Large (3+) (Negative); Urine Ketones Negative (Negative); Urine Protein Trace mg/dL (Neg-Trace)
[2023-04-18 08:21] LABS: Bacteria Urine 4+ (None Seen); Hyaline Casts Urine 0-2 /LPF (0-2); UACC Culture Trigger YES
--- NOTE | 2023-04-18 08:27 | PC.NURSE ---
labs obtained/sent to lab.
[2023-04-18 08:39] LABS: MANUAL DIFF FLAG NO
[2023-04-18 08:44] LABS: Basophils Percent Auto 0.5 % (0-2); Eosinophils Absolute Auto 0.1 X10*3/uL (0.0-0.4); Eosinophils Percent Auto 1.1 % (0-4); Hematocrit 40.6 % (37.0-47.0); Hemoglobin 13.2 g/dl (12.0-16.0); Imm Gran Abs Auto 0.01 X10*3/uL (0.00-0.03); Imm Gran Pct Auto 0.2 % (0.0-0.4); Lymphocytes Absolute Auto 1.7 X10*3/uL (1.2-4.9); Lymphocytes Percent Auto 29.4 % (20-40); Mean Corpuscular HGB Conc 32.5 g/dl (31.0-35.0); Mean Corpuscular Hemoglobin 28.6 pg (27.0-33.0); Mean Corpuscular Volume 87.9 fL (80.0-98.0); Mean Platelet Volume 9.9 fL (9.4-12.3); Monocytes Absolute Auto 0.4 X10*3/uL (0.1-1.2); Neutrophils Absolute Auto 3.5 x10*3/uL (2.0-8.3); Neutrophils Percent Auto 61.8 % (45-73); Platelet Count 338 X10*3/uL (160-400); Red Blood Count 4.62 X10*6/uL (4.20-5.50); Red Cell Distribution Width 13.4 % (11.0-16.0); White Blood Count 5.7 X10*3/uL (4.8-10.8)
[2023-04-18 08:55] LABS: Alanine Aminotransferase 13 U/L (0-31); Albumin Level 3.7 g/dL (3.5-5.0); Alkaline Phosphatase 95 U/L (39-117); Anion Gap 12 (12-20); Aspartate Amino Transferase 12 U/L (5-31); Bilirubin Total 0.6 mg/dL (0.0-1.0); Blood Urea Nitrogen 12 mg/dL (9-16); Calcium 8.4 mg/dL (8.4-10.2); Carbon Dioxide 23 mmol/L (22-29); Chloride 108 mmol/L (96-108); Creatinine Clr Calc Pharmacy 76.7; Estimated Glomerular Filt Rate 57; Glucose Random 106 mg/dL (60-115); Potassium 4.1 mmol/L (3.3-5.1); Sodium 139 mmol/L (135-145); Total Protein 6.7 g/dL (6.5-8.0)
--- NOTE | 2023-04-18 09:00 | PC.NURSE ---
pelvic exam completed by dr. christina. plan of care ongoing.
[2023-04-18] MEDS: cefTRIAXone sodium 1 GM in 0.9 % Sodium Chloride 50 ML IV (09:04)
[2023-04-18 09:09] LABS: Lactic Acid 1.1 mmol/L (0.5-2.0)
--- NOTE | 2023-04-18 09:19 | P.CONOB_ITS ---
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: Yes (MOTHER) Patient Tobacco Use Status: Never used Tobacco e-Cigarette/Vaping Use: Currently Using Advance Directives: No Advance Directives Information Provided: Yes Meds Allergies Allergy/AdvReac Type Severity Reaction Status Date / Time nitroglycerin [NITROGLYCERIN] Allergy Unknown SEIZURE Verified 04/18/23 07:40 LIKE SYMPTOMS, fainting/ seizure, seizures 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 Luna as the following: PELVIC: Mild dark bleeding from cervical os, noted tissue at the cervical os and unable to remove HIGH SCHOOL MUSIC INSTRUCTOR - Results Labs 04/18/23 08:27 04/18/23 08:27 Labs: Short CBC 04/18/23 Range/Units 08:27 WBC 5.7 (4.8-10.8) X10*3/uL Hgb 13.2 (12.0-16.0) g/dl Hct 40.6 (37.0-47.0) % Plt Count 338 (160-400) X10*3/uL BMP 04/18/23 08:27 Sodium 139 Potassium 4.1 Chloride 108 Carbon Dioxide 23 BUN 12 Creatinine 0.99 Calcium 8.4 Liver Function 04/18/23 Range/Units 08:27 Total Bilirubin 0.6 (0.0-1.0) mg/dL AST 12 (5-31) U/L ALT 13 (0-31) U/L Alkaline Phosphatase 95 (39-117) U/L Albumin 3.7 (3.5-5.0) g/dL Urine 04/18/23 Range/Units 08:09 Urine Color Yellow Urine Appearance Clear Urine pH 5.5 (5.0-9.0) Ur Specific [place] 1.020 (1.005-1.025) Urine Protein Trace (Neg-Trace) mg/dL Urine Glucose (UA) Negative (Negative) mg/dL Assessment and Plan (1) Postmenopausal bleeding: Status: Acute Plan Recommended the following to Dr. Conrad: Instructions to be given to the patient to follow-up in the office early next week for further evaluation, specifically further endometrial sampling to rule out endometrial pathology including endometrial hyperplasia and/or malignancy or polyp and to come back to the emergency room in case of heavy vaginal bleeding preop. I spent a total of 20 minutes reviewing the chart, communicating with the emergency room provider and documenting in the medical record.
--- NOTE | 2023-04-18 09:34 | PC.NURSE ---
medication administered at this time.
== END 2023-04-18 10:38 | disposition home or self-care (01) ==
PROVIDERS: Emergency Provider Student in an Organized Health Care Education/Training Program; PCP Internal Medicine
DX: N95.0 Postmenopausal bleeding (principal); N93.9 Abnormal uterine and vaginal bleeding, unspecified; N39.0 Urinary tract infection, site not specified; Z79.899 Other long term (current) drug therapy
CPT/HCPCS: 36415; 80053; 81001; 83605; 85025; 87040; 87086; 96365; 99284; J0696

== ENCOUNTER → 2023-04-18 07:48 | Outpatient (BNV) | payer MEDICARE, MEDICAID, SELFPAY | PROVIDERS: Emergency Provider Student in an Organized Health Care Education/Training Program; PCP Internal Medicine; Visit Provider Obstetrics & Gynecology | DX: N95.0 Postmenopausal bleeding (principal) | CPT/HCPCS: 99283 ==

== ENCOUNTER 2023-04-19 10:24 | Outpatient (REF) | payer MEDICARE, MEDICAID, SELFPAY | END 2023-04-19 10:25 | disposition home or self-care (01) | LOC: HO.LNP 10:24 | PROVIDERS: PCP Internal Medicine; Visit Provider Obstetrics & Gynecology | DX: Z09 Encounter for follow-up examination after completed treatment for conditions other than malignant neoplasm (principal); Z01.818 Encounter for other preprocedural examination; N95.0 Postmenopausal bleeding; R87.615 Unsatisfactory cytologic smear of cervix | CPT/HCPCS: 88142; 99212 ==

== ENCOUNTER 2023-04-19 10:24 | Outpatient (AMB) | payer MEDICARE, MEDICAID, SELFPAY ==
[2023-04-19 10:33] VITALS: BP 120/76
--- NOTE | 2023-04-19 10:33 | A.OFFVIS_ITS ---
Intake Vital Signs 04/19/23 10:33 BP 120/76 Intake Visit Reasons: ER follow up / preop Command Post Superintendent: Command Post Superintendent Present Allergies nitroglycerin [NITROGLYCERIN] Allergy (Unknown, Verified 04/18/23 07:40) SEIZURE LIKE SYMPTOMS, fainting/ seizure, seizures Is last menstrual period known: Yes Last menstrual period: 01/11/20 Post menopausal: No Patient : No Do you need a note to return to daycare/school/sports/work: Yes (for surgery on wednesday) HPI HPI Comments History of Present Illness Details The patient is presenting for follow-up after emergency room visit for another episode of vaginal bleeding. The following workup was done H&H 13..6 The patient had an episode of postmenopausal bleeding 6 weeks ago EMB showed inactive endometrium, negative for endometrial hyperplasia and/or malignancy. 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 home: Yes (MOTHER) Patient Tobacco Use Status: Never used Tobacco e-Cigarette/Vaping Use: Currently Using Female Reproductive History Menstrual Age of Menarche: 11 Date of last menstrual period: 01/11/20 Total pregnancies: 2 Full term: 2 Review of Systems Card Reports as per HPI and Reports no additional complaints Resp Reports as per HPI and Reports no additional complaints GI Reports as per HPI and Reports no additional complaints Reports as per HPI Physical Exam Vital Signs: Last Vital Signs BP 120/76 04/19/23 10:33 Const General: cooperative, healthy appearing and comfortable Resp Effort & Inspection: normal respiratory effort Auscultation: clear to auscultation bilaterally Percussion: percussion normal Cardio Palpation: normal PMI Rate: regular rate Rhythm: regular rhythm Heart sounds: no murmurs and no rubs Peripheral pulses: Peripheral pulses 2+ throughout GI Inspection: Yes normal to inspection Palpation (GI): Soft to palpation, nontender, no guarding, not rigid and No hepatosplenomegaly present Percussion: Yes normal to percussion Auscultation: normal bowel sounds Rectal Exam - Female: deferred Assessment & Plan Assessment & Plan (1) Postmenopausal bleeding: Comment: Recurrent Code(s): N95.0 - Postmenopausal bleeding Plan: Pelvic ultrasound ordered, discussed with the patient the differential diagnosis of recurrent postmenopausal bleeding including endometrial hyperplasia and/or malignancy or endometrial polyp, recommended hysteroscopy D&C possible polypectomy/myomectomy. Discussed with the patient the procedure , all benefits and risks including but not limited to inability to complete the procedure , insufficient endometrial tissue for a complete evaluation of the endometrial cavity , bleeding, infection, possible need for blood transfusion with all its risk ( HIV,syphilis, Hepatitis, anaphylaxis shock, others..), injury to bladder, rectum, possible need for laparoscopy/laparotomy or hysterectomy. The patient verbalized understanding and signed the consent. Instructions given the patient to schedule a 2 week postoperative appointment (2) Unsatisfactory cervical Papanicolaou smear: Code(s): R87.615 - Unsatisfactory cytologic smear of cervix Plan: Pap smear repeated Orders: Orders Pap Smear Today N95.0 - Postmenopausal bleeding, R87.615 - Unsatisfactory cytologic smear of cervix US pelvic and transvaginal Today N95.0 - Postmenopausal bleeding Coding Level of Care Code Est Pt Level 3 (19126) Diagnoses Postmenopausal bleeding N95.0 Unsatisfactory cervical Papanicolaou smear R87.615
== END 2023-04-19 11:27 | disposition home or self-care (01) ==
LOC: HO.HWS 10:24
PROVIDERS: PCP Internal Medicine; Visit Provider Obstetrics & Gynecology
DX: N95.0 Postmenopausal bleeding (principal); R87.615 Unsatisfactory cytologic smear of cervix
CPT/HCPCS: 99213

== ENCOUNTER 2023-04-20 10:26 | Outpatient (REF) | payer MEDICARE, MEDICAID, SELFPAY ==
--- NOTE | ~2023-04-20 | US_ITS ---
EXAMINATION: US PELVIS CLINICAL INFORMATION: Postmenopausal bleeding Intermittent bleeding for 3 months COMPARISON: CT scan abdomen and pelvis 02/05/2023 TECHNIQUE: Ultrasound of the pelvis is performed using both transabdominal and transvaginal transducers along with Doppler. Transvaginal imaging is performed due to inadequate visualization transabdominally. FINDINGS: Uterus: The uterus is anteverted and measures 8.2 x 4.0 x 4.9 cm. No focal fibroid The endometrium is thickened, heterogeneous with multiple small cystic spaces. It measures 1.3 cm. The ovaries are not seen. US/US pelvic and transvaginal IMPRESSION: 1. Thickened heterogeneous endometrium. In the setting of postmenopausal bleeding, further evaluation such as an endometrial 2. The ovaries are not seen.
== END 2023-04-20 10:27 | disposition home or self-care (01) ==
LOC: HO.US 10:26
PROVIDERS: PCP Internal Medicine; Visit Provider Obstetrics & Gynecology
DX: N95.0 Postmenopausal bleeding (principal)
CPT/HCPCS: 76830; 76856

== ENCOUNTER 2023-04-28 11:37 | Day surgery (SDC) | payer MEDICARE, MEDICAID, SELFPAY ==
--- NOTE | 2023-04-21 12:37 | HO.ANESPROP2 ---
HPI - Anesthesia Eval Consult details Narrative: 57yo F for D&C Hysteroscopy,possible myomectomy,possible polypectomy, s/p umbilical hernia 03/2023 with GA-LMA 4 PMFSH Active Problems Active Problems: All Active Problems (Updated 04/19/23 @ 00:00 by Octavio Warner) Unsatisfactory cervical Papanicolaou smear (Acute) Umbilical hernia (Acute) Postmenopausal bleeding (Acute) Morbid obesity (Acute) Past Medical History Medical History Weight loss Back pain History of endometrial biopsy Depression Sleep apnea Morbid obesity HTN (hypertension) Family History Family History Father Pancreas cancer Family history of problems with anesthesia: No Surgical History Surgical History History of umbilical hernia repair (~03/23/23) Hx of breast lump removal Hx of knee surgery History of Problems with Anesthesia: No Social History Social History 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) Patient Tobacco Use Status: Never used Tobacco e-Cigarette/Vaping Use: Currently Using Meds Allergies Allergy/AdvReac Type Severity Reaction Status Date / Time nitroglycerin [NITROGLYCERIN] Allergy Unknown SEIZURE Verified 04/18/23 07:40 LIKE SYMPTOMS, fainting/ seizure, seizures Exam Pertinent Lab Results Pertinent Lab Results: Laboratory Tests 04/18/23 08:27 WBC 5.7 Hgb 13.2 Hct 40.6 Plt Count 338 Sodium 139 Potassium 4.1 Chloride 108 Carbon Dioxide 23 BUN 12 Creatinine 0.99 Assessment and Plan Assessment Anesthesia Assessment: Chart Reviewed Final Anesthetic Review Family History of Problems with Anesthesia: No History of Problems with Anesthesia: No
[2023-04-28] VITALS (8 sets, daily range): BP systolic 123–159; BP diastolic 58–89; PULSE 50–75; RESP 18–20; TEMP 36.1–36.9; O2SAT 96–100; BMI 34.2
--- NOTE | 2023-04-28 12:40 | MHC.SHP ---
Pre-Procedural Eval Section A - 24 Hr Update-Section A only Date of Service: 04/28/23 The patient is an INPATIENT: No Changes since office visit: No Cold of Flu in the past 2 weeks, No New Medical Problems, No Changes in Medication and No Patient answered all questions The patient has been examined within 24 hours of the surgical procedure. The History & Physical has been completed within 30 days and I have reviewed it.: Yes Section B - Complete if H&P > 30 days Chief Complaint: Postmenopausal bleeding Allergies: Allergies Allergy/AdvReac Type Severity Reaction Status Date / Time nitroglycerin [NITROGLYCERIN] Allergy Unknown SEIZURE Verified 04/18/23 07:40 LIKE SYMPTOMS, fainting/ seizure, seizures Plan Diagnosis/Plan: Unchanged I have reviewed the history and physical and performed a pertinent physical examination on my patient. No changes have occurred unless specified. Time Spent With Patient Time: Total time managing care of this patient today ____ minutes.
[2023-04-28] MEDS: Lactated Ringers 1,000 ML 100 ML IVCONT (12:42)
--- NOTE | 2023-04-28 13:17 | HO.ANESPROP2 ---
FORMERLY [facility] Active Problems Active Problems: All Active Problems (Updated 04/19/23 @ 00:00 by Octavio Warner) Unsatisfactory cervical Papanicolaou smear (Acute) Umbilical hernia (Acute) Postmenopausal bleeding (Acute) Morbid obesity (Acute) Past Medical History Medical History Weight loss Back pain History of endometrial biopsy Depression Sleep apnea Morbid obesity HTN (hypertension) Family History Family History Father Pancreas cancer Family history of problems with anesthesia: No Surgical History Surgical History History of umbilical hernia repair (~03/23/23) Hx of breast lump removal Hx of knee surgery History of Problems with Anesthesia: No Social History Social History 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) Patient Tobacco Use Status: Never used Tobacco e-Cigarette/Vaping Use: Currently Using Are you DNR?: No Advance Directives: No Advance Directives Information Provided: Yes Meds Allergies Allergy/AdvReac Type Severity Reaction Status Date / Time nitroglycerin [NITROGLYCERIN] Allergy Unknown SEIZURE Verified 04/18/23 07:40 LIKE SYMPTOMS, fainting/ seizure, seizures Active Medications: Current Medications Fentanyl (Fentanyl Citrate/Pf 100 Mcg/2 Ml Vial) 25 mcg IVPUSH Q5M PRN; Protocol PRN Reason: Pain, Moderate(Pain Scale 4-6) Lactated Ringer's (Lr) 1,000 mls @ 100 mls/hr IVCONT .Q10H SANYA Last Admin: 04/28/23 12:42 Dose: 100 mls/hr Ondansetron HCl (Ondansetron Hcl 4 Mg/2 Ml Vial) 4 mg IVPUSH ONCE PRN PRN Reason: Nausea and Vomiting Oxycodone HCl (Oxycodone Hcl Immed Release 5 Mg Tablet) 5 mg PO ONCE PRN PRN Reason: Pain, Severe (Pain Scale 7-10) Exam Height,Weight and Vital Signs: Height 5 ft 7 in Weight 99.155 kg Last Vital Signs Temp 98.4 F 04/28/23 12:41 Pulse 70 04/28/23 12:41 Resp 20 04/28/23 12:41 BP 148/89 H 04/28/23 12:41 Pulse Ox 98 04/28/23 12:41 O2 Del Method Room Air 04/28/23 12:41 Airway Mallampati Class: II TM Dist: >3cm Neck ROM: Full Denture: Upper Partial: Lower Heart: rrr Lungs: clear Assessment and Plan Final Anesthetic Review Family History of Problems with Anesthesia: No History of Problems with Anesthesia: No NPO: Yes ASA Class: III Final Preanesthetic Review: No Changes in Pt Med Stat, Meds/Allgs Chart Reviewed, Consent Obtained/Reviewed and Anes Risks/Benef Reviewed Patient Risk: Intermediate Procedure Risk: Low Anesthetic Plan Anesthetic Plan: GA Disposition: Standard PACU
--- NOTE | 2023-04-28 14:26 | P.BOP_ITS ---
Brief Operative Note Date of Service: 04/28/23 Pre-op diagnosis: Postmenopausal bleeding Post-op diagnosis: same (2 endometrial polyps) Procedure: Hysteroscopy D&C, Polypectomies Surgeon: William Forde MD Anesthesia: GLMA Was an Biodiesel Plant Operations Engineer used for this Procedure?: No Estimated blood loss (mL): 0 Pathology: other (Endometrial Scrapping. Polyps) Condition: stable Disposition: PACU
--- NOTE | 2023-04-28 14:26 | W.PM.OPN ---
Operative Note Operative Note Date of Service: 04/28/23 Narrative: Preop Diagnosis: Postmenopausal bleeding Operation: Diagnostic Hysteroscopy, Dilataion & Curettage and polypectomies Post Op Diagnosis: 2 Endometrial Polyps QBL: Minimal Anesthesia: GLMA Surgeon: William Forde MD Cell Liner: None Complication: None Pathology: Endometrial Scrapings, 2 Endometrial polyps Procedure: The patient was put in the dorsal lithotomy position, scrubbed, and draped in the usual manner. A sterile speculum was inserted in the patient's vagina. The anterior lip of the cervix was grasped with a single tooth tenaculum. The cervix was dilated up to 5 mm, then the scope was inserted in the patient's uterus. Inspection revealed 2 endometrial polyps. The Myosure Reach device was used; it was introduced through the operative channel and polypectomies done with no complications. The scope was then taken out from the uterine cavity, sharp curettings was carried on with minimal to moderate amount of tissues retrieved. At the end of the procedure, all instruments were taken out of the patient uterine and vaginal cavity. The single tooth tenaculum was removed and homeostasis was assured using pressure,. The patient tolerated the procedure well and was transferred to the PACU in a stable condition.
[2023-04-28] MEDS: fentaNYL citrate/PF 100 MCG/2 ML VIAL 25 MCG IVPUSH (14:45)
[2023-04-28] MEDS: ondansetron HCL 4 MG/2 ML VIAL IVPUSH (14:45)
[2023-04-28] MEDS: oxyCODONE HCl Immed Release 5 MG TABLET PO (15:01)
[2023-04-28] MEDS: Acetaminophen 325 MG TABLET 650 MG PO (15:09)
== END 2023-04-28 15:28 | disposition home or self-care (01) ==
PROVIDERS: PCP Internal Medicine; Visit Provider Obstetrics & Gynecology
PROC: 0UDB8ZZ Extraction of Endometrium, Via Natural or Artificial Opening Endoscopic (ICD-10-PCS; CPT 58558; principal; 2023-04-28 13:30)
DX: N95.0 Postmenopausal bleeding (principal); N84.0 Polyp of corpus uteri; N71.1 Chronic inflammatory disease of uterus; I10 Essential (primary) hypertension; G47.30 Sleep apnea, unspecified; Z88.8 Allergy status to other drugs, medicaments and biological substances
CPT/HCPCS: 58558; 88305; J1100; J1885; J2250; J2405; J2704; J3010

== ENCOUNTER → 2023-04-28 11:37 | Outpatient (BNV) | payer MEDICARE, MEDICAID, SELFPAY | PROVIDERS: PCP Internal Medicine; Visit Provider Obstetrics & Gynecology | DX: N84.0 Polyp of corpus uteri (principal) | CPT/HCPCS: 58558 ==

== ENCOUNTER 2023-05-10 09:45 | Outpatient (REF) | payer MEDICARE, MEDICAID, SELFPAY | END 2023-05-10 09:46 | disposition home or self-care (01) | LOC: HO.LNP 09:45 | PROVIDERS: PCP Internal Medicine; Visit Provider Obstetrics & Gynecology | DX: N85.00 Endometrial hyperplasia, unspecified (principal); R87.615 Unsatisfactory cytologic smear of cervix | CPT/HCPCS: 57454; 88305; 99212 ==

== ENCOUNTER 2023-05-10 09:45 | Outpatient (AMB) | payer MEDICARE, MEDICAID, SELFPAY ==
--- NOTE | 2023-05-10 10:02 | MHC.OFFVIS ---
Intake Vital Signs 05/10/23 10:07 Height 5 ft 7 in Weight 226 lb BMI 35.4 BP 110/66 Intake Visit Reasons: post op/pap only Sports Medicine Trainer Required: No Information Interpreted: non-clinical & clinical Home Performance Consultant: Home Performance Consultant Present (Celine TURNER) Accompanied by: Self / Same As Patient Allergies nitroglycerin [NITROGLYCERIN] Allergy (Unknown, Verified 05/10/23 10:08) SEIZURE LIKE SYMPTOMS, fainting/ seizure, seizures Post menopausal: Yes HPI HPI Comments History of Present Illness Details The patient is presenting post hysteroscopy D&C polypectomy with no complaints minimal vaginal bleeding no feverishness chills or abdominal pain. The pathology showed the following: A. Endometrial polyp, resection: Fragments of benign endometrial polyp with foci of hyperplasia without atypia, breakdown, necrosis, metaplastic changes, and chronic endometritis; no atypia or carcinoma. B. Endometrium, curettage: Fragments of benign endometrial polyps with focal breakdown, and fragments of inactive to weakly proliferative endometrium; no atypia or carcinoma. 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 other at home: Yes (MOTHER) Patient Tobacco Use Status: Never used Tobacco e-Cigarette/Vaping Use: Currently Using Female Reproductive History Menstrual Age of Menarche: 11 Review of Systems Const All systems reviewed & are unremarkable except as noted in HPI and below Reports as per HPI and Reports no additional complaints GI Reports no additional complaints Reports no additional complaints Physical Exam Vital Signs: Last Vital Signs BP 110/66 05/10/23 10:07 BMI result Body Mass Index 35.4 Office Procedures Colposcopy Before the procedure was started discussed with the patient the procedure, alternatives & all the risks associated with the procedure (bleeding, infection, injury to vagina, bladder, vessels, possible need for transfusion with all its risks) then patient signed the consent UPT done in the office & negative Pap smear = unsatisfactory Pap x2/HPV negative Speculum inserted, acetic acid used Colposcopy done Transformation zone seen, acetowhite lesions identified at 7+9+11+4 o?clock, cervical biopsies taken from 7+9+11+4 o?clock, ECC done afterwards. Vaginoscopy of the upper vagina showed no evidence of any aceto-white lesions Monsel solution used for hemostasis. The patient tolerated well . At the end the patient was instructed to call if temp>100.4, abdominal pain, n/v, bleeding; The patient was given the following instructions: nothing per vagina, no intercourse or bath tub use. All questions answered the patient verbalized understanding. Instructed the patient to make an appointment in 2 weeks for follow-up This note was generated with a voice recognition program. Some errors may have been overlooked during the review of this note. Sometimes these errors may affect the content or meaning of a given sentence. [id number] of cervix including upper vagina with biopsy and ECC Procedure code (CPT) selection complete Assessment & Plan Assessment & Plan (1) Endometrial hyperplasia without atypia: Code(s): N85.00 - Endometrial hyperplasia, unspecified Plan: Discussed with the patient the pathology results, simple endometrial hyperplasia with no atypia, in addition to the risk of progression, the persistence and regression rate of endometrial hyperplasia. Options of treatment discussed with the patient include surgical or progestin. All pros and cons, risks and benefits of each were discussed with the patient. Will Refer to freezer worker Oncology for further management. Instructed the patient to call our office back in case a referral appointment is not scheduled, missed or canceled so that we will assist on rescheduling another appointment, the patient verbalized understanding agreed with the plan. (2) Unsatisfactory cervical Papanicolaou smear: Code(s): R87.615 - Unsatisfactory cytologic smear of cervix Plan: Since the 2nd Pap smear was unsatisfactory, recommended colposcopy per ASCCP guidelines, colpo biopsy/ECC done, see procedure note. Orders: Orders AMB Colposcopy Today R87.615 - Unsatisfactory cytologic smear of cervix Referrals Gynecologic Oncology Referral N85.00 - Endometrial hyperplasia, unspecified Coding Level of Care Code Est Pt Level 3 (24342) Procedure Only Diagnoses Endometrial hyperplasia without atypia N85.00 Unsatisfactory cervical Papanicolaou smear R87.615 CPT Codes Colposcopy - CPT: 79077-Porpiqugb of cervix including upper vagina with biopsy and ECC ([id number])
[2023-05-10 10:07] VITALS: BP 110/66; BMI 35.4
== END 2023-05-10 11:16 | disposition home or self-care (01) ==
LOC: HO.HWS 09:46
PROVIDERS: PCP Internal Medicine; Referring Provider Internal Medicine; Visit Provider Obstetrics & Gynecology
DX: N85.00 Endometrial hyperplasia, unspecified (principal); Z01.411 Encounter for gynecological examination (general) (routine) with abnormal findings
CPT/HCPCS: 57454; 99213; Q0091

== ENCOUNTER 2023-05-11 11:32 | Outpatient (REF) | payer MEDICARE, MEDICAID, SELFPAY ==
--- NOTE | ~2023-05-11 | MM_ITS ---
EXAMINATION: MM SCREENING DIGITAL BREAST TOMOSYNTHESIS, BILATERAL CLINICAL INFORMATION: Screening. Asymptomatic. COMPARISON: Mammography: This study is compared with prior exams dating back to 2009. No interval mammograms. TECHNIQUE: Digital breast tomosynthesis is performed in both the craniocaudal and mediolateral oblique views along with computer-aided detection (CAD). Synthesized 2D images are generated from the tomosynthesis. FINDINGS: The breasts are heterogeneously dense, which may obscure small masses (ACR BI-RADS breast composition Category c). There are no significant masses, abnormal calcifications, or other abnormalities. MM/MM tomosynthesis screening BI IMPRESSION: No mammographic evidence of malignancy. ASSESSMENT: BI-RADS BI-RADS 1 - Negative RECOMMENDATION: Routine annual mammography screening. 1 year F/U This examination should not preclude the clinical evaluation of a suspicious palpable abnormality. This patient's information was entered into a reminder system with a target due date for their next mammogram.
== END 2023-05-11 11:33 | disposition home or self-care (01) ==
LOC: HO.MAMMO 11:32
PROVIDERS: PCP Internal Medicine; Visit Provider Obstetrics & Gynecology
DX: Z12.31 Encounter for screening mammogram for malignant neoplasm of breast (principal)
CPT/HCPCS: 77063; 77067

== ENCOUNTER → 2023-05-11 12:15 | Outpatient (BNV) | payer MEDICARE, MEDICAID, SELFPAY | PROVIDERS: PCP Internal Medicine; Visit Provider Radiology Diagnostic Radiology | DX: Z12.31 Encounter for screening mammogram for malignant neoplasm of breast (principal) | CPT/HCPCS: 77063; 77067 ==

== ENCOUNTER 2023-12-16 05:38 | Emergency (ER) | payer MEDICARE, MEDICAID, SELFPAY ==
--- NOTE | ~2023-12-16 | XR_ITS ---
EXAMINATION: X-ray right ankle X-ray right foot CLINICAL INFORMATION: Pain COMPARISON: None TECHNIQUE: Ankle 3 views. Foot 2 views. FINDINGS: Ankle: Large [id number]-tv-[id number] study, with majority of the tibia and fibula are included in the [id number], with associated limitation. No acute fracture seen of the tibia or fibula. Ankle mortise is maintained. Talar dome appears intact. No fracture is seen of the anterior calcaneal process, fifth metatarsal base. Moderate plantar calcaneal spur. Moderate Achilles tendon insertional enthesopathy. Foot: There is mild lateral subluxation of the fourth distal phalanx at the fourth DIP joint. The bony alignment otherwise is anatomic. No visible acute fracture or dislocation. Mild second TMT arthritis. Spurring of the proximal base of the fifth metatarsal. No erosions. No abnormal soft tissue calcification. XR/XR ankle RT min 3V IMPRESSION: No radiographic evidence of acute fracture or dislocation. Lateral subluxation of the fourth distal phalanx at the fourth DIP joint. Calcaneal spurring. Electronically signed by: Griffin Loera MD 12/16/2023 08:52 AM EDT
--- NOTE | ~2023-12-16 | XR_ITS ---
EXAMINATION: X-ray right ankle X-ray right foot CLINICAL INFORMATION: Pain COMPARISON: None TECHNIQUE: Ankle 3 views. Foot 2 views. FINDINGS: Ankle: Large [id number]-tv-[id number] study, with majority of the tibia and fibula are included in the [id number], with associated limitation. No acute fracture seen of the tibia or fibula. Ankle mortise is maintained. Talar dome appears intact. No fracture is seen of the anterior calcaneal process, fifth metatarsal base. Moderate plantar calcaneal spur. Moderate Achilles tendon insertional enthesopathy. Foot: There is mild lateral subluxation of the fourth distal phalanx at the fourth DIP joint. The bony alignment otherwise is anatomic. No visible acute fracture or dislocation. Mild second TMT arthritis. Spurring of the proximal base of the fifth metatarsal. No erosions. No abnormal soft tissue calcification. XR/XR foot RT min 3V IMPRESSION: No radiographic evidence of acute fracture or dislocation. Lateral subluxation of the fourth distal phalanx at the fourth DIP joint. Calcaneal spurring. Electronically signed by: Griffin Loera MD 12/16/2023 08:52 AM EDT
[2023-12-16 05:44] VITALS: BP 116/77; PULSE 83; RESP 18; TEMP 36.6; O2SAT 99; BMI 26.7
[2023-12-16 06:32] VITALS: PULSE 65; RESP 18; TEMP 36.6
--- NOTE | 2023-12-16 06:37 | ED_ITS ---
HPI - General Adult General Chief complaint: Extremity Injury, Lower Stated complaint: fell, r foot swollen burning Time Seen by Provider: 12/16/23 06:34 Source: patient Mode of arrival: ambulatory Limitations: no limitations History of Present Illness ED Provider: Jenny Ortiz PA-C HPI narrative: 58 yo female presents following fall at home. States that at 2330 last night, tripped and fell over her dog. As she fell, twisted right ankle, began to feel burning pain at inferomedial aspect of right foot radiating to the back of her ankle and up her leg. Denies head strike or loss of consciousness. Says that she has a partially torn right achilles tendon originally sustained in August 2023 after falling down a flight of stairs. Reports she has a bony spur at right ankle that she says interferes with achilles and surrounding structures. She is scheduled to have surgery to repair the partial tear of her achilles at [facility] in February 2024. Patient states that she has a walking boot at home. Says that she has decreased ROM at baseline due to partial tear of achilles, no worse than normal after the fall last night. Her surgeon has prescribed her meloxicam leading up to the surgery. Onset (ago): hour(s) Location: lower extremity Radiation: non-radiation Severity: mild Quality: burning Pain Consistency: constant Relieving factors: none Exacerbating factors: none Associated symptoms: denies other symptoms Treatments prior to arrival: none Related Data Previous Rx's ?Medication ?Instructions ?Recorded ibuprofen 600 mg tablet 600 mg PO Q6H PRN pain #30 tabs 03/23/23 oxycodone-acetaminophen 5 mg-325 1 tab PO Q4-6H PRN pain #20 tabs 03/23/23 mg tablet (Percocet) Allergies Allergy/AdvReac Type Severity Reaction Status Date / Time nitroglycerin [NITROGLYCERIN] Allergy Unknown SEIZURE Verified 12/16/23 05:47 LIKE SYMPTOMS, fainting/ seizure, seizures Review of Systems Constitutional: Constitutional: Reports no additional constitutional complaints Eyes: Eyes: Reports no additional eye complaints, Denies blurry vision, Denies change in vision, Denies diplopia, Denies eye discharge, Denies loss of vision and Denies eye pain ENT: Denies dizziness Cardiovascular: Cardiovascular: Reports no additional cardiovascular complaints, Denies chest pain, Denies lightheadedness, Denies Loss of Consciousness and Denies dyspnea Respiratory: Respiratory: Reports no additional respiratory complaints and Denies dyspnea Gastrointestinal: Gastrointestinal: Reports no additional gastrointestinal complaints, Denies abdominal pain, Denies melena, Denies hematochezia, Denies change in bowel habits and Denies change in stool character Genitourinary: Genitourinary: Denies hematuria, Denies urinary frequency, Denies dysuria, Denies urinary incontinence, Denies urinary hesitancy and Denies urinary urgency Musculoskeletal: Musculoskeletal: Reports as per HPI, Denies numbness, Reports stiffness and Denies tingling Comments: right ankle/foot pain Neurologic: Denies dizziness, Denies loss of vision, Denies numbness and Denies tingling Psychiatric: Psychiatric: Reports no additional psychiatric complaints Endocrine: Endocrine: Reports no additional endocrine complaints Hematologic/Lymphatic: Hematologic/Lymphatic: Reports no additional hematologic/lymphatic complaints Allergic/Immunologic: Allergic/Immunologic: Reports no additional allergic/immunologic complaints PMFSH Past Medical History Attestation statement: The following information was validated with the patient. 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) Patient Tobacco Use Status: Never used Tobacco Smoked in Last 30 Days: No e-Cigarette/Vaping Use: Currently Using Use of substances other than those prescribed or required for medical reasons: No Advance Directives: No Advance Directives Information Provided: Yes Patient : No Physical Exam ED Vital Signs: Vital Signs - 24 hr 12/16/23 05:44 12/16/23 06:32 12/16/23 08:35 Temperature 97.8 F 97.8 F 97.8 F Pulse Rate 83 65 65 Respiratory Rate 18 18 18 Blood Pressure 116/77 116/77 Pulse Oximetry 99 99 Oxygen Delivery Method Room Air Room Air Room Air BMI result Body Mass Index 26.7 Const General: cooperative, no acute distress, alert and awake Nutritional Appearance: well nourished Orientation/consciousness: patient oriented x3 Limitations: no limitations HENMT Head: Yes normal to inspection and Yes atraumatic Ears: hearing grossly normal bilaterally and external ears normal General nose exam: Normal external nose present, no nasal discharge noted and no epistaxis Face and sinus: Yes normal facial exam, No abrasion and No laceration Mouth: Normal oral and palatal mucosa present, no drooling and no muffled voice Eyes General: appearance normal, both eyes and all related structures Periorbital: periorbital findings normal Eyelids: Yes eyelids normal Conjunctivae: conjunctivae normal Pupils: Equal, round and reactive pupils present EOM: EOMs intact bilaterally Neck Neck: Yes normal visual inspection, Yes full ROM and Yes no lymphadenopathy Chest Chest palpation & inspection: normal inspection of the chest Resp Effort & Inspection: normal respiratory effort and able to speak in complete sentences GI Inspection: Yes normal to inspection Neuro General: patient oriented x3 and moves all extremities Cranial nerves: Yes Equal, round and reactive pupils present Cognition (Neuro): normal cognition Extrem General: Yes normal to inspection and Yes capillary refill normal Right upper extremity: normal to inspection Left upper extremity: normal to inspection Right lower extremity: normal capillary refill and ankle Details: tenderness, abnormal ROM, achilles tendon exam abnormal Details: tenderness to palpation of achilles tendon and other (Has abnormal ROM of RLE secondary to partial tear in Achilles tendon) Psych Appearance: grossly normal Mental Status: mental status grossly normal Affect: normal affect Attitude: cooperative Thought process: Normal thought process present Thought content: Normal thought content present Insight: Good insight present (Psych) Medications Administered Discontinued Medications Generic Name Dose Route Start Last Admin Trade Name Freq PRN Reason Stop Dose Admin Tramadol HCl 25 mg 12/16/23 08:06 12/16/23 08:29 Tramadol Hcl 50 Mg Tablet PO 12/16/23 08:07 25 mg ONCE ONE Administration Procedures Orthopedic Splinting/Casting Injury #1: Side: right Lower Extremity Injury Location: ankle and foot Lower Extremity Immobilizer: Jeff wrap Medical Decision Making Medical Decision Making MDM Narrative: 58 yo female with history of hernia repair, kidney cysts, uterine polyps, and partial right Achilles tendon tear, presents following a fall from standing at home with right ankle and foot pain. Patient's physical exam was as noted in the physical exam portion of this note. Patient's right foot and ankle x-ray showed no acute process. I explained my physical exam findings as well as all test results to the patient. I answered all questions asked by the patient. Patient requested to have her ankle wrapped as she needed to drive. Patient's right ankle was placed in an JEFF wrap, without incident. Patient's PMS was intact prior to and after JEFF application. I stressed the importance of the patient taking her medication as directed (either prescribed or as the over the counter packaging recommends). I stressed the importance of the patient following up with her primary care provider and an orthopedic provider. I stressed the importance of the patient returning to the emergency department immediately if her symptoms were to worsen or if she were to develop any dizziness, shortness of breath, difficulty breathing, chest pain, blurry vision, loss of vision, nausea, vomiting, abdominal pain, fever, chills, back pain, or any other complaints. Patient verbalized agreement and understanding with this treatment plan and discharge. Differential Diagnosis Differential Diagnoses: The differential diagnosis associated with the presentation includes Ankle sprain Ankle strain Ankle fracture Foot fracture Foot sprain Foot strain Admission/Observation Consideration of admission/observation: Escalation of care including admission/observation considered Patient would have been admitted to the hospital had her work up had any f indings where hospital admission was appropriate and her clinical presentation warranted hospital admission. Independent Interpretation I performed an independent interpretation of an: Plain X-Ray Interpretation: My interpretation is in agreement with the radiologist's impression of these imaging studies. EXAMINATION: X-ray right ankle X-ray right foot CLINICAL INFORMATION: Pain COMPARISON: None TECHNIQUE: Ankle 3 views. Foot 2 views. FINDINGS: Ankle: Large [id number] study, with majority of the tibia and fibula are included in the [id number], with associated limitation. No acute fracture seen of the tibia or fibula. Ankle mortise is maintained. Talar dome appears intact. No frac ture is seen of the anterior calcaneal process, fifth metatarsal base. Moderate plantar calcaneal spur. Moderate Achilles tendon insertional enthesopathy. Foot: There is mild lateral subluxation of the fourth distal phalanx at the fourth DIP joint. The bony alignment otherwise is anatomic. No visible acute fracture or dislocation. Mild second TMT arthritis. Spurring of the proximal base of the fifth metatarsal. No erosions. No abnormal soft tissue calcification. XR/XR ankle RT min 3V IMPRESSION: No radiographic evidence of acute fracture or dislocation. Lateral subluxation of the fourth distal phalanx at the fourth DIP joint. Calcaneal spurring. Electronically signed by: Griffin Loera MD 12/16/2023 08:52 AM EDT RP Dictated By: Griffin Loera MD Signed By: Electronically signed by Griffin Loera MD 12/16/23 0852 Radiology Impression Discussion of test interpretation with radiology: I have reviewed the radiologist's reading. Discharge Plan Discharge Clinical Impression: Ankle sprain Patient Disposition: Home, Self-Care Instructions: Ankle Sprain (DC) Additional Instructions: Follow up with your primary care provider and your orthopedic provider. Wear your walking boot as directed. Return to the emergency department immediately if your symptoms worsen or if you develop any dizziness, shortness of breath, difficulty breathing, chest pain, blurry vision, loss of vision, nausea, vomiting, abdominal pain, fever, chills, back pain, or any other complaints. Prescriptions: No Action oxycodone-acetaminophen [Percocet] 5-325 mg tablet 1 tab PO Q4-6H PRN (Reason: pain) Qty: 20 0RF Rx Instructions: Partial Fill upon patient request. ibuprofen 600 mg tablet 600 mg PO Q6H PRN (Reason: pain) Qty: 30 0RF Referrals: Dalia Lam MD [Primary Care Provider] - Interventions: ED Discharge Assessment Last Done: 12/16/23 08:35 Discharge Date/Time: 12/16/23 08:36 Print Language: Turkish
[2023-12-16] MEDS: traMADoL HCL 50 MG TABLET 25 MG PO (08:29)
[2023-12-16 08:35] VITALS: BP 116/77; PULSE 65; RESP 18; TEMP 36.6; O2SAT 99
== END 2023-12-16 08:36 | disposition home or self-care (01) ==
PROVIDERS: Emergency Provider Student in an Organized Health Care Education/Training Program; PCP Internal Medicine
DX: S93.401A Sprain of unspecified ligament of right ankle, initial encounter (principal); M79.671 Pain in right foot; X50.1XXA Overexertion from prolonged static or awkward postures, initial encounter; Y93.89 Activity, other specified; Y92.89 Other specified places as the place of occurrence of the external cause; Y99.8 Other external cause status
CPT/HCPCS: 29515; 73610; 73630; 99283; 99284

== ENCOUNTER 2024-08-26 01:08 | Emergency (ER) | payer MEDICARE, MEDICAID, SELFPAY ==
[2024-08-26 01:29] VITALS: BP 106/67; PULSE 88; RESP 19; TEMP 36.2; O2SAT 98; BMI 29.7
[2024-08-26 02:49] VITALS: PULSE 78
--- NOTE | 2024-08-26 04:15 | PC.NURSE ---
Pt LWBS- made registration aware. Pt raising voice/agitated at staff. No IV line established. Ambulated out of the ED steady gait on RA. bioassayist and MD aware of situation.
== END 2024-08-26 04:16 | disposition left against medical advice (07) ==
PROVIDERS: Emergency Provider Emergency Medicine
DX: M79.89 Other specified soft tissue disorders (principal); Z53.21 Procedure and treatment not carried out due to patient leaving prior to being seen by health care provider
CPT/HCPCS: 99281; 99284